=== PATIENT | female | born 2000 | race African-American/Black ===

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

== ENCOUNTER 2023-09-01 05:56 | Emergency (ER) | payer OTHER ==
[~2023-09-01] VITALS: Ht 177.8 cm; Wt 122.0 kg
[2023-09-01] MEDS: KETOROLAC 30 MG/ML 1ML VIAL IV ONE (06:32)
[2023-09-01 06:35] LABS: VENOUS BASE EXCESS -1.2 (-2.0-2.0); VENOUS HCO3 26.4 MMOL/L (23.0-27.0); VENOUS O2 SATURATION 57.1 % (60.0-80.0); VENOUS PARTIAL PRESSURE CO2 55.2 mmHg (38.0-50.0); VENOUS PARTIAL PRESSURE O2 33.4 mmHg (30.0-50.0); VENOUS PH 7.297 UNITS (7.330-7.430); VENOUS STANDARD HCO3 22.4 MMOL/L; VENOUS TOTAL CO2 28.1 MMOL/L (24.0-28.0)
[2023-09-01 06:42] LABS: BASO # 0.1 10^3/uL (0.0-0.2); BASO % 0.5 % (0.0-1.0); EOS # 0.2 10^3/uL (0.0-0.5); HEMATOCRIT 45.9 % (42.0-52.0); HEMOGLOBIN 14.8 g/dl (13.5-17.5); LYMPH # 4.5 10^3/uL (1.5-5.0); LYMPH % 48.1 % (24.0-44.0); MEAN CORPUSCULAR HGB CONC 32.2 g/dl (32.0-36.5); MEAN CORPUSCULAR VOLUME 86.8 fl (80.0-96.0); MONO # 0.7 10^3/uL (0.0-0.8); NEUTROPHILS # 3.9 10^3/uL (1.5-8.5); NEUTROPHILS % 42.1 % (36.0-66.0); PLATELET COUNT, AUTOMATED 271 10^3/uL (150-450); RED BLOOD COUNT 5.29 10^6/uL (4.30-6.10); WHITE BLOOD COUNT 9.4 10^3/uL (4.0-10.0)
[2023-09-01 07:05] LABS: LIPASE 34 U/L (12-53)
[2023-09-01 07:07] LABS: ALBUMIN 4.1 G/DL (3.2-5.2); ALKALINE PHOSPHATASE 39 U/L (46-116); ALT/SGPT 36 U/L (7.0-40); AST/SGOT 23 U/L (<34); BILIRUBIN,DIRECT 0.3 MG/DL (<0.4); BILIRUBIN,TOTAL 0.9 MG/DL (0.3-1.2); BLOOD UREA NITROGEN 12 MG/DL (9-23); CALCIUM LEVEL 9.6 MG/DL (8.5-10.1); CARBON DIOXIDE LEVEL 28 MMOL/L (20-31); CHLORIDE LEVEL 104 MMOL/L (98-107); CK-MB VALUE MASS 2.4 NG/ML (<3.6); CREATININE FOR GFR 0.96 MG/DL (0.70-1.30); GLOMERULAR FILTRATION RATE > 60.0 (>60); GLUCOSE, FASTING 99 MG/DL (60-100); POTASSIUM SERUM 4.1 MMOL/L (3.5-5.1); SODIUM LEVEL 140 MMOL/L (136-145); TOTAL PROTEIN 7.4 G/DL (5.7-8.2)
[2023-09-01 07:09] LABS: THYROID STIMULATING HORMONE 2.381 uIU/ML (0.55-4.78)
[2023-09-01 07:16] LABS: CPK CREATINE PHOSPHOKINASE 772 U/L (46-171); MB/CK RELATIVE INDEX 0.31 (< OR =4)
[2023-09-01] MEDS ORDERED: HOME MED LIST COMPLETE! XX SCH (07:50)
[2023-09-01] MEDS: NS 1,000 ML IV ONE (07:55)
[2023-09-01] MEDS ORDERED: ISOVUE-370 76% 100ML VIAL As Ordered ONE (07:59)
[2023-09-01 08:09] LABS: CK-MB VALUE MASS 2.2 NG/ML (<3.6); MB/CK RELATIVE INDEX 0.31 (< OR =4)
[2023-09-01] MEDS ORDERED: NAPR-837 PO (09:25)
[2023-09-01 09:33] VITALS: BP 139/67; TEMP 98.2; O2SAT 99
== END 2023-09-01 09:43 | disposition home or self-care (01) ==
LOC: M ED 05:56
DX: R07.9 Chest pain, unspecified (principal); M94.0 Chondrocostal junction syndrome [Tietze]; Z79.899 Other long term (current) drug therapy
CPT/HCPCS: 71045; 71275; 80048; 80076; 82550; 82553; 82803; 83690; 83880; 84443; 84484; 85025; 93005; 93041; 94760; 96374; 99285; J1885; Q9967